=== PATIENT | male | born 1960 | race African-American/Black ===

== ENCOUNTER 2019-05-24 16:48 | Emergency (ER) | payer OTHER ==
[~2019-05-24] VITALS: Ht 170.2 cm; Wt 100.0 kg
[2019-05-24] MEDS ORDERED: KETOROLAC 30MG/ML VIAL IM ONE (19:00)
[2019-05-24 20:37] VITALS: BP 132/72
== END 2019-05-24 20:37 | disposition home or self-care (01) ==
LOC: ER 16:48
DX: G89.29 Other chronic pain (principal); M25.552 Pain in left hip; E78.00 Pure hypercholesterolemia, unspecified; I10 Essential (primary) hypertension; F17.200 Nicotine dependence, unspecified, uncomplicated; Z96.642 Presence of left artificial hip joint; Z88.3 Allergy status to other anti-infective agents; V49.88XA Car occupant (driver) (passenger) injured in other specified transport accidents, initial encounter; Y93.89 Activity, other specified; Y92.89 Other specified places as the place of occurrence of the external cause; Y99.8 Other external cause status
CPT/HCPCS: 73503; 96372; 99283; J1885